=== PATIENT | female | born 1990 | race Two or more races ===

== ENCOUNTER 2019-09-01 05:57 | Emergency (ER) | payer OTHER, SELFPAY ==
--- NOTE | ~2019-09-01 | CT_ITS ---
EXAMINATION: CT abdomen pelvis w con DATE: 09/01/2019 08:59 INDICATION: Nausea and vomiting. Abdominal pain. Diarrhea. TECHNIQUE: Computed tomography (CT) of the abdomen and pelvis was performed with 100 mL Omnipaque 350 intravenous contrast. Automated exposure control and iterative reconstruction technique were employe d. The dose-length product was 206.48 mGy-cm. COMPARISON: None. FINDINGS: Motion artifact is noted. The visualized portions of the lung bases are clear without pneum onia or pleural effusion. The heart size is normal. No pericardial effusion. The liver, gallbladder, spleen, pancreas, adrenal glands, and kidneys are normal. There are no dilated loops of bowel. The ap pendix is not visualized. There are no pathologically enlarged lymph nodes. There is no free intraper itoneal fluid. The bones are unremarkable. IMPRESSION: 1. No etiology for the patient's symptoms. Sensitivity is mildly decreased by motion artifact. Reviewed, dictated and finalized at location A. NESS CENTER MANAGER IMPRESSION: 1. No etiology for the patient's symptoms. Sensitivity is mildly decreased by m otion artifact.
[2019-09-01 06:04] VITALS: BP 116/69; PULSE 82; RESP 16; TEMP 36.1; O2SAT 92
--- NOTE | 2019-09-01 06:25 | PC.NURSE ---
pt stated she needed to use the restroom. this rn gave pt urine cup and explained to pt we will need a urine sample. when pt arrived back into room, pt threw urine cup onto ground. urine cup didn't have any urine in it. pt thrashing around in bed and dry heaving. pt not answering this rn's questions at this time.
[2019-09-01] MEDS: ONDANSETRON INJ 4 MG/2 ML VIAL IV PUSH ×2 (06:37→09:54)
[2019-09-01] MEDS: SODIUM CHLORIDE 0.9% IV 1,000 ML 999 ML IV CONT (06:37)
[2019-09-01] MEDS: DICYCLOMINE HCL INJ 20 MG/2 ML VIAL IM (06:37)
[2019-09-01 06:38] LABS: Basophils Absolute Auto 0.1 K/mm3 (0.0-0.1); Basophils Percent Auto 0.3 % (0.2-1.2); Hematocrit 41.2 % (37.0-47.0); Hemoglobin 13.5 g/dL (12.0-15.0); Immature Granulocyte Absolute 0.13 K/mm3 (0.00-0.031); Immature Granulocyte Percent A 0.5 % (0-0.5); Lymphocytes Absolute Auto 0.73 K/mm3 (0.9-3.2); Lymphocytes Percent Auto 2.9 % (18.3-44.2); Mean Corpuscular HGB Conc 32.8 g/dl (32-36); Mean Corpuscular Volume 79.2 fl (80-100); Mean Platelet Volume 11.5 fl (7.4-10.4); Monocytes Absolute Auto 0.7 K/mm3 (0.1-0.6); Monocytes Percent Auto 2.9 % (2.6-8.5); Neutrophils Absolute Auto 23.6 K/mm3 (1.3-6.7); Neutrophils Percent Auto 93.4 % (45.5-73.1); Platelet Count Result 341 k/mm3 (150-375); Red Cell Distribution Width 12.8 % (11.5-14.5); White Blood Count 25.3 K/mm3 (4.5-10.0)
[2019-09-01 06:58] LABS: Albumin Level 4.6 g/dL (3.5-5.1); Alkaline Phosphatase 43 U/L (38-126); Aspartate Amino Transferase 37 U/L (14-36); Blood Urea Nitrogen 18 mg/dL (7-17); Calcium 9.8 mg/dL (8.4-10.2); Carbon Dioxide 20 mmol/L (22-30); Chloride 102 mmol/L (98-107); Estimated CRCL calculation 76 ml/min; Estimated Glomerular Filt Rate > 60; Glucose 178 mg/dL (65-105); Lipase 37 U/L (23-300); Potassium 3.5 mmol/L (3.4-5.0); Sodium 137 mmol/L (137-145)
--- NOTE | 2019-09-01 06:58 | ED.GENADULT ---
HPI - General Adult General Chief complaint: Nausea/Vomiting/Diarrhea Stated complaint: violently ill Time Seen by Provider: 09/01/19 06:14 History of Present Illness HPI narrative: Patient is a 29-year-old female who presents ER with nausea/vomiting/diarrhea. Symptoms began last night around 11 PM. Family reports similar symptoms going through the home. No blood in the vomit or stool. No alleviating factors. Patient is most disturbed by diffuse abdominal cramping. She is without fever/chills/sweats. No syncope. Related Data Allergies Allergy/AdvReac Type Severity Reaction Status Date / Time No Known Allergies Allergy Verified 09/01/19 06:05 Review of Systems Review of Systems: All systems reviewed & are unremarkable except as noted in HPI and below Constitutional: Constitutional: Denies chills, Denies fever(s) and Denies weakness Respiratory: Respiratory: Denies cough and Denies dyspnea Gastrointestinal: Gastrointestinal: Reports abdominal pain, Reports bloating, Reports diarrhea, Reports nausea and Reports vomiting Genitourinary: Genitourinary: Denies frequent urination, Denies dysuria and Denies flank pain PMFSH Past Medical History Medical History (Updated 09/01/19 @ 10:43 by Masoud Dhaliwal MD) No pertinent past medical history Surgical History Surgical History (Updated 09/01/19 @ 07:16 by Masoud Dhaliwal MD) No pertinent past surgical history Social History Social History (Updated 09/01/19 @ 07:17 by Masoud Dhaliwal MD) Substance use type: marijuana Exam Narrative: Exam Narrative: GENERAL: Uncomfortable-appearing, well-nourished, and squirming around the bed. HEAD: Normocephalic, atraumatic. EYES: PERRL and EOMI. ENT: Mucous membranes moist. CHEST: Clear to auscultation. No respiratory distress. HEART: Regular rate and rhythm. Normal peripheral pulses. ABDOMEN: Soft, nontender, nondistended. EXTREMITIES: Normal range of motion. No edema. SKIN: Warm, dry, no rash. NEURO: Alert and oriented x3. Course Vital Signs Vital signs: Vital Signs Temperature 97.0 F L 09/01/19 06:04 Pulse Rate 82 09/01/19 06:04 Respiratory Rate 16 09/01/19 06:04 Blood Pressure 116/69 09/01/19 06:04 Pulse Oximetry 92 09/01/19 06:04 Temperature 97.0 F L 09/01/19 06:04 Pulse Rate 82 09/01/19 06:04 Respiratory Rate 16 09/01/19 06:04 Blood Pressure 116/69 09/01/19 06:04 Pulse Oximetry 92 09/01/19 06:04 Medical Decision Making MDM Narrative Medical decision making narrative: Patient is received Zofran x2 and Phenergan for longer rolling around in the bed. She is received 1 L normal saline [address] unremarkable. Leukocytosis related to retching. Discharge home with supportive therapy. Vital Signs Vital Signs: Vital Signs Temperature 97.0 F L 09/01/19 06:04 Pulse Rate 82 09/01/19 06:04 Respiratory Rate 16 09/01/19 06:04 Blood Pressure 116/69 09/01/19 06:04 Pulse Oximetry 92 09/01/19 06:04 Temperature 97.0 F L 09/01/19 06:04 Pulse Rate 82 09/01/19 06:04 Respiratory Rate 16 09/01/19 06:04 Blood Pressure 116/69 09/01/19 06:04 Pulse Oximetry 92 09/01/19 06:04 Lab Data Result diagrams: 09/01/19 06:29 09/01/19 06:29 Labs: Lab Results 09/01/19 09/01/19 09/01/19 Range/Units 06:29 06:29 08:43 WBC 25.3 H (4.5-10.0) K/mm3 RBC 5.20 (4.2-5.4) M/mm3 Hgb 13.5 (12.0-15.0) g/dL Hct 41.2 (37.0-47.0) % MCV 79.2 L (80-100) fl MCH 26.0 (26-34) pg MCHC 32.8 (32-36) g/dl RDW 12.8 (11.5-14.5) % Plt Count 341 (150-375) k/mm3 MPV 11.5 H (7.4-10.4) fl Immature Gran % (Auto) 0.5 (0-0.5) % Neut % (Auto) 93.4 H (45.5-73.1) % Lymph % (Auto) 2.9 L (18.3-44.2) % Drew % (Auto) 2.9 (2.6-8.5) % Eos % (Auto) 0.0 (0-4.4) % Baso % (Auto) 0.3 (0.2-1.2) % Lymph # (Auto) 0.73 L (0.9-3.2) K/mm3 Drew # (Auto) 0.7 H (0.
[2019-09-01 07:00] LABS: Alanine Aminotransferase 38 U/L (4-35); Platelet Estimate Adequate (Adequate); Poikilocytosis 1+ (NORMAL)
--- NOTE | 2019-09-01 07:00 | PC.NURSE ---
pt states she still isn't able to urinate at this time. pt also states her nausea/pain isn't any better. notified.
[2019-09-01] MEDS: PROMETHAZINE HCL 25 MG/ML AMPUL 12.5 MG IV PUSH (07:23)
[2019-09-01 08:54] LABS: Add Urine Microscopic? YES; Amorphous Sediment Urine Few; Appearance Urine Cloudy (Clear); Bacteria Urine Trace /hpf; Bilirubin Urine Negative (Negative); Blood Urine Negative (Negative); Color Urine Yellow (Yellow); Glucose Urine UA 1+ mg/dL (Negative); Ketones Urine 2+ mg/dL (Negative); Leukocyte Esterase Ur Negative LEU/UL (Negative); Mucus Urine Heavy /lpf; Nitrate Urine Negative (Negative); Protein Urine 2+ mg/dL (Negative); Squamous Epithelial Cell Urine Few /hpf (Few); Urobilinogen Urine Negative mg/dL (<2.0); WBC Urine 0-3 /hpf
[2019-09-01] MEDS: DEXTROSE 5%/0.9% SOD CHL 1,000 ML 1000 ML IV CONT (09:54)
--- NOTE | 2019-09-01 10:43 | PC.NURSE ---
Patient called out. Patient c/o increasing nausea and pain; states she just wants to get out of here. Requesting more nausea medicine and pain medicine. Advised EDP; no new orders obtained at this time.
[2019-09-01 10:55] VITALS: BP 115/92; PULSE 62; RESP 18; O2SAT 99
--- NOTE | 2019-09-20 09:13 | PC.NURSE ---
LATE ENTRY This note is being entered to document information to the patient's record. The following information was omitted on [09/01/2019], by [WILLARD Barrios]. NS 1000mL infused with a stop time of 0735. Dextrose 5%/NS0.9% 1000mL infused with a stop time of 0950.
== END 2019-09-01 10:57 | disposition home or self-care (01) ==
PROVIDERS: Emergency Provider Emergency Medicine; Family Provider Emergency Medicine
DX: K52.9 Noninfective gastroenteritis and colitis, unspecified (principal)
CPT/HCPCS: 36415; 74177; 80053; 81001; 81025; 83690; 85025; 96361; 96372; 96374; 96375; 96376; 99284; J0500; J2405; J2550; J7030; J7042; Q9967

== ENCOUNTER 2021-04-09 07:57 | Emergency (ER) | payer OTHER, SELFPAY ==
--- NOTE | ~2021-04-09 | XR_ITS ---
EXAMINATION: XR chest 1V portable DATE: 04/09/2021 19:10 INDICATION: Leukocytosis. Anxiety attacks. TECHNIQUE: frontal view of the chest was obtained. COMPARISON: None FINDINGS: The lungs are clear with no focal airspace opacities, pulmonary edema, pleural effusion or pneumothor ax. The cardiomediastinal silhouette is normal. Visualized bones and soft tissues are unremarkable. IMPRESSION: 1. No acute cardiopulmonary disease. Reviewed, dictated and finalized at location A.
--- NOTE | ~2021-04-09 | CT_ITS ---
EXAMINATION: CT abdomen pelvis w con DATE: 04/09/2021 17:55 INDICATION: Left lower quadrant abdominal pain. TECHNIQUE: Computed tomography (CT) of the abdomen and pelvis was performed with 100 mL Omnipaque-350 intravenous contrast. Automated exposure control and iterative reconstruction technique were employe d. The dose-length product was 246.16 mGy-cm. COMPARISON: None FINDINGS: Visualized lung bases are clear. Heart size is normal. No pericardial or pleural effusion. The liver, gallbladder, spleen, pancreas, bilateral adrenal glands and kidneys are normal. Bladder and retrover meg uterus are normal. Small low-attenuation likely follicles in both ovaries with larger 1.5 cm pan nant follicle at the left ovary. Bowels including the appendix are normal. Small amount of likely phy siologic free fluid in the cul-de-sac. No abscess or free intraperitoneal gas. No pathologically enla rged abdominal or pelvic lymphadenopathy. Bones are unremarkable. IMPRESSION: 1. No acute intra-abdominal/pelvic process. Reviewed, dictated and finalized at location A.
[2021-04-09 08:02] VITALS: BP 112/51; PULSE 104; RESP 18; TEMP 36.3; O2SAT 100
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
--- NOTE | 2021-04-09 08:50 | PC.NURSE ---
Security and sitter at bedside with pt. Pt continues to pace room. Pt banging on olivo. Pt yelling I just need to get out of here. I can't do this. deescalation attempted. Pt continues to remain in her room at this time.
[2021-04-09] MEDS: LORazepam INJ (*CRX) 2 MG/ML VIAL 1 MG IM ×2 (09:12→09:50)
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
[2021-04-09] MEDS: HALOPERIDOL LACTATE 5 MG/ML VIAL IM (09:50)
--- NOTE | 2021-04-09 09:50 | PC.NURSE ---
RN to room pt thrashing in bed. Pt has pulled left arm out of restraint. RN attempting to deescalate. Multiple nurses, security, and sitter at bedside at this time. Pt placed back in restraints at this time. EDP made aware
--- NOTE | 2021-04-09 10:30 | PC.NURSE ---
RN to room pt thrashing around the bed. Pt has again pulled left arm out of restraint. RN attempting to deescalate. Multiple nurses, security, and technical operations manager attempting to place patient back into restraint. Pt repositioned and restraint was reapplied. Sitter and security remain at bedside.
[2021-04-09 11:02] LABS: Basophils Absolute Auto 0.1 K/mm3 (0.0-0.1); Basophils Percent Auto 0.5 % (0.2-1.2); Hematocrit 40.9 % (37.0-47.0); Hemoglobin 13.6 g/dL (12.0-15.0); Immature Granulocyte Absolute 0.14 K/mm3 (0.00-0.031); Immature Granulocyte Percent A 0.6 % (0-0.5); Lymphocytes Absolute Auto 2.65 K/mm3 (0.9-3.2); Lymphocytes Percent Auto 11.3 % (18.3-44.2); Mean Corpuscular HGB Conc 33.3 g/dl (32-36); Mean Corpuscular Hemoglobin 26.1 pg (26-34); Mean Corpuscular Volume 78.4 fl (80-100); Mean Platelet Volume 10.9 fl (7.4-10.4); Monocytes Absolute Auto 0.5 K/mm3 (0.1-0.6); Monocytes Percent Auto 2.3 % (2.6-8.5); Neutrophils Percent Auto 85.3 % (45.5-73.1); Platelet Count Result 401 k/mm3 (150-375); Red Blood Count 5.22 M/mm3 (4.2-5.4); Red Cell Distribution Width 13.6 % (11.5-14.5); White Blood Count 23.5 K/mm3 (4.5-10.0)
[2021-04-09 11:14] LABS: Alanine Aminotransferase 37 U/L (4-35); Albumin Level 4.7 g/dL (3.5-5.1); Alkaline Phosphatase 46 U/L (38-126); Anion Gap 17 mmol/L (8-16); Aspartate Amino Transferase 34 U/L (14-36); Bilirubin,Total 1.3 mg/dL (0.2-1.3); Blood Urea Nitrogen 16 mg/dL (7-17); Calcium 9.7 mg/dL (8.4-10.2); Carbon Dioxide 16 mmol/L (22-30); Chloride 105 mmol/L (98-107); Estimated CRCL calculation 71 ml/min; Estimated Glomerular Filt Rate > 60; Glucose 164 mg/dL (65-110); Potassium 3.5 mmol/L (3.4-5.0); Sodium 138 mmol/L (137-145)
[2021-04-09 11:15] LABS: Ethanol < 10 mg/dL (<10)
--- NOTE | 2021-04-09 11:30 | PC.NURSE ---
Report given to WILLARD Price
[2021-04-09 11:33] LABS: Amphetamine Screen Urine Negative (Negative); Barbiturate Screen Urine Negative (Negative); Benzodiazepines Screen Urine Negative (Negative); Cannabinoid Screen Urine Positive (Negative); Cocaine Screen Urine Negative (Negative); Methadone Screen Urine Negative (Negative); Opiate Screen Urine Negative (Negative); Phencyclidine Screen Urine Negative (Negative)
[2021-04-09 11:35] LABS: Add Urine Microscopic? YES; Appearance Urine Cloudy (Clear); Bacteria Urine Trace /hpf; Bilirubin Urine Negative (Negative); Blood Urine Negative (Negative); Color Urine Yellow (Yellow); Glucose Urine UA Negative (Negative); Ketones Urine Trace mg/dL (Negative); Leukocyte Esterase Ur Negative LEU/UL (Negative); Mucus Urine Heavy /lpf; Nitrate Urine Negative (Negative); Protein Urine 1+ mg/dL (Negative); Specific Grav Ur 1.028 (1.001-1.035); Squamous Epithelial Cell Urine Occasional /hpf (Few); Urobilinogen Urine Negative mg/dL (<2.0); WBC Urine 0-3 /hpf
[2021-04-09 11:43] LABS: Thyroid Stimulating Hormone 0.721 uIU/mL (0.465-4.680)
--- NOTE | 2021-04-09 12:55 | PC.NURSE ---
Spoke with Dr Roman. Pt no longer violent, calm and answering questions appropriate. Denies suicidal or homicidal ideation at this time. Violent restraints removed. TITLE I COORDINATOR intact in all limbs. Pt complaining of stomach ache, denies nausea. OK to drink water per MD. Pt reports anxiety attack this AM just happened . Denies specific event preceding severe anxiety.
--- NOTE | 2021-04-09 15:08 | PC.NURSE ---
Called to room by sitter. Pt becoming more anxious. Dr Roman at bedside. Pt reports suddenly feeling like she can't sit still, pacing in room. Pt reports abdominal pain, nontender on palpitation. Dr Roman to place orders
[2021-04-09] MEDS: PROMETHAZINE HCL 25 MG TABLET PO (15:38)
[2021-04-09 16:35] LABS: Hematocrit 39.6 % (37.0-47.0); Hemoglobin 13.2 g/dL (12.0-15.0); Mean Corpuscular HGB Conc 33.3 g/dl (32-36); Mean Corpuscular Hemoglobin 26.2 pg (26-34); Mean Corpuscular Volume 78.6 fl (80-100); Mean Platelet Volume 10.8 fl (7.4-10.4); Platelet Count Result 362 k/mm3 (150-375); Red Blood Count 5.04 M/mm3 (4.2-5.4); Red Cell Distribution Width 13.6 % (11.5-14.5); White Blood Count 27.3 K/mm3 (4.5-10.0)
[2021-04-09 16:46] LABS: Anion Gap 13 mmol/L (8-16); Blood Urea Nitrogen 18 mg/dL (7-17); Calcium 9.9 mg/dL (8.4-10.2); Carbon Dioxide 22 mmol/L (22-30); Chloride 102 mmol/L (98-107); Estimated CRCL calculation 81 ml/min; Estimated Glomerular Filt Rate > 60; Glucose 127 mg/dL (65-110); Potassium 3.6 mmol/L (3.4-5.0); Sodium 137 mmol/L (137-145)
[2021-04-09 16:55] LABS: Band Neutrophils Percent 5 % (0-6); Lymphocytes Absolute Manual 0.27 K/mm3 (1.1-4.5); Neutrophils Absolute Manual 27.02 K/mm3 (1.7-7.2); Neutrophils Percent Manual 94 % (46-73); Total Cells Counted 100
[2021-04-09 17:57] LABS: EDCOVIDSCREEN Negative (Negative)
--- NOTE | 2021-04-09 18:30 | PC.NURSE ---
Magdalena from crisis here, states patient will be voluntary. Per Magdalena she faxed to [place] and [place].
--- NOTE | 2021-04-09 19:45 | PC.NURSE ---
Assumed care of pt at this time. Pt in room 15 with sitter at bedside. Denies SI/HI at this time. Pt calm, cooperative.
[2021-04-09 20:05] VITALS: BP 108/65; PULSE 65; RESP 20; TEMP 37.5; O2SAT 100
[2021-04-09 22:40] VITALS: BP 104/59; PULSE 95; RESP 16; TEMP 37.3; O2SAT 100
--- NOTE | 2021-04-10 00:09 | PC.NURSE ---
Order discontinued in computer at this time. See prior note, restraints removed from patient at 12:55 PM on April 09
--- NOTE | 2021-04-10 03:02 | PC.NURSE ---
Called [facility] and left a voicemail for them to call back for an update. Called [facility] they have everything but do not have beds at this time.
--- NOTE | 2021-04-10 03:22 | PC.NURSE ---
Received call from [facility], spoke with Carlie, and was informed they did not accept pt for placement.
[2021-04-10 06:08] VITALS: BP 92/50; PULSE 84; RESP 20; TEMP 36.6; O2SAT 100
--- NOTE | 2021-04-10 06:50 | PC.NURSE ---
Breakfast tray ordered for pt at this time.
--- NOTE | 2021-04-10 10:26 | PC.NURSE ---
Rosalind from [facility] called regarding pt COVID status, she states she requested a PCR test to be done per the PA at that facility. Gave her result of our test, she states she will talk to the PA about this result. She states pt is 5th person on the list for admission.
--- NOTE | 2021-04-10 10:41 | PC.NURSE ---
[facility] called to report that patient is 5th on the list for a bed and will not be accepted to the facility without a COVID PCR complete. [facility] reports that they called their loan processing supervisor and due to patient reporting nausea and vomiting at time of arrival to ED the PA at [facility] requires a PCR not a rapid covid test at this time.
--- NOTE | 2021-04-10 11:21 | PC.NURSE ---
EDP informed about patient's change to low risk on SI reevaluation at this time. Patient requesting to be discharged from the facility.
== END 2021-04-10 13:14 | disposition home or self-care (01) ==
PROVIDERS: Emergency Medicine; Emergency Provider Emergency Medicine
DX: F41.0 Panic disorder [episodic paroxysmal anxiety] (principal); Z20.822 Contact with and (suspected) exposure to COVID-19
CPT/HCPCS: 36415; 51701; 71045; 74177; 80048; 80053; 80307; 81001; 81025; 84443; 85025; 87426; 96372; 99284; A9270; C9803; J1630; J2060; Q9967